=== PATIENT | female | born 1955 | race Caucasian/White ===

== ENCOUNTER 2024-09-19 14:46 | Emergency (ER) | payer OTHER ==
[~2024-09-19] VITALS: Ht 154.9 cm; Wt 83.0 kg
[2024-09-19 15:19] VITALS: BP_SYST 126; PULSE 59; RESP 16; TEMP 97.8; O2SAT 93
[2024-09-19] MEDS: HYDROcodone/ACETAMIN 5-325 MG TAB (NORCO/ VICODIN) PO ONE (15:45)
[2024-09-19] MEDS ORDERED: TRAM50TA2 PO (17:02)
[2024-09-19] MEDS: traMADol HCL HCL 50 MG TABLET (ULTRAM) PO ONE (17:33)
[2024-09-19 18:05] VITALS: BP_SYST 126; PULSE 59; RESP 16; TEMP 97.8; O2SAT 93
== END 2024-09-19 18:04 | disposition home or self-care (01) ==
LOC: SED 14:46
DX: S42.251A Displaced fracture of greater tuberosity of right humerus, initial encounter for closed fracture (principal); Z88.0 Allergy status to penicillin; W10.9XXA Fall (on) (from) unspecified stairs and steps, initial encounter; Y93.01 Activity, walking, marching and hiking; Y92.89 Other specified places as the place of occurrence of the external cause; Y99.8 Other external cause status
CPT/HCPCS: 73030; 99283